=== PATIENT | female | born 2000 | race Two or more races ===

== ENCOUNTER → 2024-12-29 | Outpatient (CLI) | payer MEDICAID, SELFPAY ==
--- NOTE | 2024-12-29 09:00 | XR_ITS ---
Examination: Upper GI series with KUB Esophagram standard Fluoroscopy 16 spot fluoroscopic films of the esophagus and stomach Date and time: December 29, 2024 1024 hours INDICATIONS: Abdominal pain heartburn 2 months TECHNIQUE AND FINDINGS: [employer] AP supine abdomen demonstrates nonobstructive bowel gas pattern Patient swallowed thin barium with 16 spot films obtained of the esophagus stomach and duodenal bulb and small bowel Fluoroscopy 0.20 minutes Primary peristaltic waves identified in the esophagus Moderate intermittent gastroesophageal reflux. No constricting esophageal lesion and there is no stricture at the gastroesophageal junction. No gastric mass deformity or ulceration. Duodenal bulb expands symmetrically. Ligament of Treitz in small bowel loops visualized unremarkable IMPRESSION: Moderate intermittent gastroesophageal reflux.
== END | disposition home or self-care (01) ==
PROVIDERS: PCP Registered Nurse Community Health; Referring Provider Registered Nurse Community Health; Visit Provider Registered Nurse Community Health
DX: K21.9 Gastro-esophageal reflux disease without esophagitis (principal)
CPT/HCPCS: 74240; A4649